=== PATIENT | female | born 2000 | race Two or more races ===

== ENCOUNTER 2023-08-29 23:54 | Emergency (ER) | payer OTHER ==
[~2023-08-29] VITALS: Ht 165.1 cm; Wt 83.9 kg
[2023-08-30] MEDS ORDERED: PROMETHAZINE HCL 50 MG/ML AMPUL IM STA (01:29)
[2023-08-30] MEDS ORDERED: FAMOTIDINE/PF 20 MG/2 ML VIAL IV PUSH STA (01:29)
[2023-08-30] MEDS ORDERED: 0.9 % SODIUM CHLORIDE 1,000 ML IV ONE (01:30)
[2023-08-30 01:47] LABS: HEMATOCRIT 36.2 % (36.0-45.00); HEMOGLOBIN 12.5 g/dL (12.0-15.00); MEAN CELL VOLUME 87.3 fL (80.00-100.00); MEAN CORPUSCULAR HEMOGLOBIN 30.3 pg (27.00-32.0); MEAN CORPUSCULAR HGB CONC 34.7 g/dl (32.0-36.0); PLATELET COUNT 300 K/uL (150-450); RED BLOOD COUNT 4.14 M/uL (4.00-6.00); RED CELL DISTRIBUTION WIDTH 13.4 % (11.5-14.5)
[2023-08-30 02:32] LABS: ALBUMIN 3.7 gm/dL (3.4-5.0); BILIRUBIN TOTAL 0.58 mg/dL (0.3-1.2); CREATININE SERUM 0.75 mg/dL (0.55-1.02); GFR 97.55; GLOBULINA 3.8 G/DL (2.4-3.5); POTASSIUM 3.5 mEq/L (3.5-5.1); TOTAL PROTEIN 7.5 gm/dL (6.4-8.2)
[2023-08-30 04:03] LABS: URINE APPEARANCE Cloudy; URINE BILIRRUBIN Negative (NEGATIVE); URINE BLOOD Negative; URINE COLOR Yellow; URINE GLUCOSE Negative (NEGATIVE); URINE LEUKOCYTE Small; URINE NITRATE Negative; URINE PROTEIN Trace (NEGATIVE)
[2023-08-30 04:06] LABS: URINE EPITHELIAL CELLS 48.5 uL (0.0-38.8); URINE RBC 9.9 uL (0.0-20.8); URINE WBC 30.4 uL (0.0-23.2)
[2023-08-30 05:18] LABS: URINE BACTERIA > 9821.2 uL (0.0-1933)
[2023-08-30] MEDS ORDERED: CEFTRIAXONE SODIUM 1,000 MG VIAL IV STA (06:10)
[2023-08-30] MEDS ORDERED: PEPCID40 MG PO (06:13)
[2023-08-30] MEDS ORDERED: CEPHALEXIN250 MG/5 M PO (06:13)
[2023-08-30] MEDS ORDERED: ONDANSETRON ODT8 MG PO (06:13)
== END 2023-08-30 06:27 ==
LOC: ER 23:54
PROVIDERS: General Practice
DX: N39.0 Urinary tract infection, site not specified (principal); Z20.822 Contact with and (suspected) exposure to COVID-19